=== PATIENT | female | born 1985 | race Caucasian/White ===

== ENCOUNTER 2018-03-25 16:03 | Emergency (ER) | payer OTHER, SELFPAY ==
[2018-03-25] MEDS ORDERED: HYDROCODONE/APAP 10/325 TAB ONE (17:07)
[2018-03-25] MEDS ORDERED: AMOX/K CLAV 875 MG TAB ONE (17:08)
--- NOTE | 2018-03-25 17:08 | EDPHYS ---
Physician Documentation [facility] Name: Kanwal Medrano Age: 33 yrs Sex: Female : 1985 Arrival Date: 03/25/2018 Time: 16:08 Bed 11 Private MD: None, None ED Physician Roger Chino HPI: 03/25 17:01 This 33 yrs old Female presents to ER via Ambulatory with complaints of jessy Toothache. 17:01 The patient presents with pain, swelling. The problem is located in the lower right jessy second bicuspid. Onset: The symptoms/episode began/occurred 2 day(s) ago. Duration: The symptoms are continuous, and are steadily getting worse. Modifying factors: The symptoms are alleviated by nothing, the symptoms are aggravated by nothing. Associated signs and symptoms: The patient has no apparent associated signs or symptoms. Severity of symptoms: At their worst the symptoms were moderate. The patient has not experienced similar symptoms in the past. 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 - Social history:: Smoking status: Patient/guardian denies using tobacco. - Ebola Screening: : No symptoms or risks identified at this time. - Family history:: not pertinent. ROS: 17:01 Constitutional: Negative for fever, chills, and weight loss, Eyes: Negative for injury, jessy pain, redness, and discharge, Neck: Negative for injury, pain, and swelling, Cardiovascular: Negative for chest pain, palpitations, and edema, Respiratory: Negative for shortness of breath, cough, wheezing, and pleuritic chest pain, Abdomen/GI: Negative for abdominal pain, nausea, vomiting, diarrhea, and constipation, Back: Negative for injury and pain, : Negative for injury, bleeding, discharge, and swelling, MS/Extremity: Negative for injury and deformity, Skin: Negative for injury, rash, and discoloration, Neuro: Negative for headache, weakness, numbness, tingling, and seizure, Psych: Negative for depression, anxiety, suicide ideation, homicidal ideation, and hallucinations, Allergy/Immunology: Negative for hives, rash, and allergies, Endocrine: Negative for neck swelling, polydipsia, polyuria, polyphagia, and marked weight changes, Hematologic/Lymphatic: Negative for swollen nodes, abnormal bleeding, and unusual bruising. 17:01 ENT: Positive for dental pain. 17: ENT: Positive for Exam: 17:01 Constitutional: This is a well developed, well nourished patient who is awake, alert, jessy and in no acute distress. Head/Face: Normocephalic, atraumatic. Eyes: Pupils equal round and reactive to light, extra-ocular motions intact. Lids and lashes normal. Conjunctiva and sclera are non-icteric and not injected. Cornea within normal limits. Periorbital areas with no swelling, redness, or edema. Neck: Trachea midline, no thyromegaly or masses palpated, and no cervical lymphadenopathy. Supple, full range of motion without nuchal rigidity, or vertebral point tenderness. No Meningismus. Chest/axilla: Normal chest wall appearance and motion. Nontender with no deformity. No lesions are appreciated. Cardiovascular: Regular rate and rhythm with a normal S1 and S2. No gallops, murmurs, or rubs. Normal PMI, no JVD. No pulse deficits. Respiratory: Lungs have equal breath sounds bilaterally, clear to auscultation and percussion. No rales, rhonchi or wheezes noted. No increased work of breathing, no retractions or nasal flaring. Abdomen/GI: Soft, non-tender, with normal bowel sounds. No distension or tympany. No guarding or rebound. No evidence of tenderness throughout. Back: No spinal tenderness. No costovertebral tenderness. Full range of motion. Female : Normal external genitalia. Skin: Warm, dry with normal turgor. Normal color with no rashes, no lesions, and no evidence of cellulitis. MS/ Extremity: Pulses equal, no cyanosis. Neurovascular intact. Full, normal range of motion. Neuro: Awake and alert, GCS 15, oriented to person, place, time, and situation. Cranial nerves II-XII grossly intact. Motor strength 5/5 in all extremities. Sensory grossly intact. Cerebellar exam normal. Normal gait. Psych: Awake, alert, with orientation to person, place and time. Behavior, mood, and affect are within normal limits. 17:01 ENT: Mouth: Lips: normal, Oral mucosa: moist, Gums: reddened, Tongue: is normal, abscess, is not appreciated, drooling, is not appreciated. Vital Signs: 16:31 BP 121 / 82; Pulse 86; Resp 16; Temp 98.8; Pulse Ox 97% on R/A; Weight 89.36 kg; Height ph 5 ft. 4 in. (162.56 cm); Pain 10/10; 16:31 Body Mass Index 33.81 (89.36 kg, 162.56 cm) ph MDM: 16:33 Patient medically screened. [facility] 17:06 Data reviewed: vital signs, nurses notes. [facility] Administered Medications: 17:09 Drug: Augmentin 875 mg Route: PO; 17:09 Drug: [place] 10 mg-325 mg 1 tabs Route: PO; Disposition: 03/25/18 17:07 Discharged to Home. Impression: Dental caries, Dental root caries. - Condition is Stable. - Discharge Instructions: Dental Abscess, Dental Injury, Dental Pain, Dental Pain, [id number]. - Prescriptions for Augmentin 875- 125 mg Oral Tablet - take 1 tablet by ORAL route every 12 hours for 10 days; 20 tablet. Tylenol- Codeine #3 300-30 mg Oral Tablet - take 2 tablet by ORAL route every 6 hours As needed; 30 tablet. - Medication Reconciliation Form, Thank You Letter, Antibiotic Education, Prescription Opioid Use, Work release form form. - Follow up: Private Physician; When: 2 - 3 days; Reason: Recheck today's complaints, Continuance of care, Re-evaluation by your physician. Follow up: Khanh Edwards DDS; When: 2 - 3 days; Reason: Recheck today's complaints, Re-evaluation by your physician. - Problem is new. - Symptoms have improved. Signatures: Roger Chino MD MD cha Williams, Irene, RN RN iw Tamar Trejo RN RN ph Corrections: (The following items were deleted from the chart) 17:18 17:07 03/25/2018 17:07 Discharged to Home. Impression: Dental caries; Dental root iw caries. Condition is Stable. Forms are Medication Reconciliation Form, Thank You Letter, Antibiotic Education, Prescription Opioid Use. Follow up: Private Physician; When: 2 - 3 days; Reason: Recheck today's complaints, Continuance of care, Re-evaluation by your physician. Follow up: Khanh Edwards; When: 2 - 3 days; Reason: Recheck today's complaints, Re-evaluation by your physician. Problem is new. Symptoms have improved. jessy
--- NOTE | 2018-03-25 17:08 | ER ---
Nurse's Notes [facility] Name: Kanwal Medrano Age: 33 yrs Sex: Female : 1985 Arrival Date: 03/25/2018 Time: 16:08 Bed 11 Private MD: None, None Diagnosis: Dental caries;Dental root caries Presentation: 03/25 16:29 Presenting complaint: Patient states: " I have a really bad toothache and I couldn't ph get into the dentist or my Dr." Pt reports pain in LL molar, denies fever, N/V/D. Transition of care: patient was not received from another setting of care. Onset of symptoms was March 25, 2018. Risk Assessment: Do you want to hurt yourself or someone else? Patient reports no desire to harm self or others. Initial Sepsis Screen: Does the patient meet any 2 criteria? No. Patient's initial sepsis screen is negative. Does the patient have a suspected source of infection? No. Patient's initial sepsis screen is negative. Care prior to arrival: None. 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 - Social history:: Smoking status: Patient/guardian denies using tobacco. - Ebola Screening: : No symptoms or risks identified at this time. - Family history:: not pertinent. Screenin:10 Abuse screen: Denies threats or abuse. Denies injuries from another. Nutritional iw screening: No deficits noted. Tuberculosis screening: No symptoms or risk factors identified. Fall Risk None identified. Assessment: 17:10 General: Appears in no apparent distress. comfortable, Behavior is calm, cooperative. iw Pain: Complains of pain in face and lower right second bicuspid and mouth. Neuro: Level of Consciousness is awake, alert, obeys commands, Oriented to person, place, time, situation. Cardiovascular: Patient's skin is warm and dry. Respiratory: Respiratory effort is even, unlabored. EENT: Derm: Skin is pink, warm \\T\\ dry. normal. Vital Signs: 16:31 BP 121 / 82; Pulse 86; Resp 16; Temp 98.8; Pulse Ox 97% on R/A; Weight 89.36 kg; Height ph 5 ft. 4 in. (162.56 cm); Pain 10/10; 16:31 Body Mass Index 33.81 (89.36 kg, 162.56 cm) ph ED Course: 16:08 Patient arrived in ED. mr 16:08 None, None is Private Physician. mr 16:30 Triage completed. ph 16:33 Roger Chino MD is Attending Physician. [facility] 17:02 Carolyn Valladares, RN is Primary Nurse. iw 17:07 Khanh Edwards DDS is Referral Physician. jessy 17:10 Arm band placed on. iw 17:10 Patient has correct armband on for positive identification. iw 17:17 No provider procedures requiring assistance completed. Patient did not have IV access iw during this emergency room visit. Administered Medications: 17:09 Drug: Augmentin 875 mg Route: PO; iw 17:09 Drug: [place] 10 mg-325 mg 1 tabs Route: PO; iw Outcome: 17:07 Discharge ordered by . [facility] 17:17 Discharged to home ambulatory, with family. iw 17:17 Condition: good 17:17 Discharge instructions given to patient, family, Instructed on discharge instructions, follow up and referral plans. medication usage, Demonstrated understanding of instructions, follow-up care, medications, Prescriptions given X 2. 17:18 Patient left the ED. iw Signatures: Roger Chino MD MD cha Rivera, Maria mr Carolyn Valladares, RN RN Tamar Trejo RN RN
== END 2018-03-25 17:18 | disposition home or self-care (01) ==
LOC: ER 16:03
DX: K02.7 Dental root caries (principal); K02.9 Dental caries, unspecified
CPT/HCPCS: 99283